=== PATIENT | female | born 2000 | race Caucasian/White ===

== ENCOUNTER 2023-02-06 22:01 | Emergency (ER) | payer OTHER, SELFPAY ==
--- NOTE | ~2023-02-06 | XR_ITS ---
XR hand RT 2V DATE: 02/06/2023 23:40 INDICATION: Laceration by glass at the tip of third digit TECHNIQUE: Portable AP and lateral views of right hand COMPARISON: None FINDINGS: No radiopaque soft tissue foreign body or subcutaneous emphysema is detected. No soft tissu e swelling is noted. No fracture or dislocation, periosteal reaction or bone destruction. IMPRESSION: Negative Reviewed, dictated and finalized at location A. IMPRESSION: Negative
[2023-02-06 22:25] VITALS: BP 143/84; PULSE 104; RESP 20; TEMP 37.3; O2SAT 100
--- NOTE | 2023-02-06 23:31 | ED.GENADULT ---
HPI - General Adult General Chief complaint: Wound/Laceration Stated complaint: cut left middle finger on glass, bleeding Time Seen by Provider: 02/06/23 23:20 Source: patient Mode of arrival: ambulatory Limitations: no limitations History of Present Illness HPI narrative: This is a 22-year-old female who presents to the ED with chief complaint of a right middle finger laceration that occurred around 2130 this evening. Patient reports that she cut the palmar side of the finger on a piece of glass. She dropped a candle which broke and she was trying to clean up when this happened. Reports she swiped her hand across a large piece of glass. Denies any further site of pain or injury. Denies numbness or weakness. Related Data Home Medications Medication Instructions Recorded Confirmed No Home Medications 02/06/23 02/06/23 Allergies Allergy/AdvReac Type Severity Reaction Status Date / Time Penicillins Allergy Hives Verified 02/06/23 22:38 Review of Systems Review of Systems: All systems as dictated in HPI Exam Narrative: GENERAL: Well-appearing, well-nourished, and in no acute distress. HEAD: Normocephalic, atraumatic. EYES: PERRLA and EOMI. ENT: Nares clear, no rhinorrhea or epistaxis. Mucous membranes moist. Oropharynx without tonsillar hypertrophy exudate or other lesions. NECK: Supple. No adenopathy or masses. CHEST: No respiratory distress. Clear to auscultation. No wheezes rales or rhonchi HEART: Regular rate and rhythm. No murmur heard. Normal peripheral pulses. ABDOMEN: Soft, nontender, nondistended, normal active bowel sounds. MSK: Normal range of motion. No edema. SKIN: 2 cm laceration vertically oriented to the palmar side of the right middle finger distally. There is mild active bleeding on exam. NEURO: Alert and oriented x3. No focal deficits. PSYCH: Normal mood and affect. Course Vital Signs Vital signs: Vital Signs Temperature 99.2 F 02/06/23 22:25 Pulse Rate 104 H 02/06/23 22:25 Respiratory Rate 20 02/06/23 22:25 Blood Pressure 143/84 H 02/06/23 22:25 Pulse Oximetry 100 02/06/23 22:25 Oxygen Delivery Room Air 02/06/23 22:25 Temperature 99.2 F 02/06/23 22:25 Pulse Rate 72 02/07/23 00:40 Respiratory Rate 16 02/07/23 00:40 Blood Pressure 118/64 02/07/23 00:40 Pulse Oximetry 99 02/07/23 00:40 Oxygen Delivery Room Air 02/06/23 22:25 Procedures Laceration Laceration 1: Date: 02/07/23 Time: 00:17 Site: hand Side (If applicable): right (middle finger) Size (cm): 2 Description: linear Depth: simple, single layer Local Anesthetic: lidocaine 1% (digital block) Amount of anesthesia used (mL): 1 Pre-repair: wound explored and irrigated extensively ====== Skin Level ====== Skin layer closed with: nylon Size (cm): 5-0 Number of sutures: 6 Technique: simple, interrupted ====== Subcutaneous Layer ====== ====== Muscle Layer ====== ====== Tendon Layer ====== Dressing: non adherent and curlix Medical Decision Making [facility] Narrative Medical decision making narrative: This is a 22-year-old female who presents to the ED with chief complaint of right middle finger laceration that occurred around 2130 this evening. Vitals are normal. Exam shows a vertically oriented 2 cm laceration to the palmar side of the middle finger. Wound was well cleaned and irrigated here in the ED. Nylon sutures were placed. Bleeding controlled. X-rays negative for any foreign bodies. Laceration instructions given. Pt will be discharged in stable condition. Return precautions given and supportive measures discussed. Pt is understanding and agreeable with plan for discharge and follow-up with PCP. Vital Signs Vital Signs: Vital Signs Temperature 99.2 F 02/06/23 22:25 Pulse Rate 104 H 02/06/23 22:25 Respiratory Rate 20 02/06/23 22:2
[2023-02-07] MEDS: LIDOCAINE HCL 1% LOCAL INJ 10 ML VIAL INFILTRATE (00:07)
[2023-02-07] MEDS: TETANUS,DIPHTHERIA,AC PERTUSSIS ADULT (0.5 ML) BOOSTRIX IM (00:15)
--- NOTE | 2023-02-07 00:33 | PC.NURSE ---
Lac repair dressed with telfa and kerlex.
[2023-02-07 00:40] VITALS: BP 118/64; PULSE 72; RESP 16; O2SAT 99
== END 2023-02-07 00:40 | disposition home or self-care (01) ==
LOC: ANHED 02-07 00:37
PROVIDERS: Emergency Provider Physician Assistant
DX: S61.213A Laceration without foreign body of left middle finger without damage to nail, initial encounter (principal); Z23 Encounter for immunization; W25.XXXA Contact with sharp glass, initial encounter
CPT/HCPCS: 12001; 73120; 90471; 90715; 99283